=== PATIENT | female | born 1985 | race Caucasian/White ===

== ENCOUNTER 2019-02-21 09:20 | Emergency (ER) | payer SELFPAY ==
[~2019-02-21] VITALS: Ht 154.9 cm; Wt 87.5 kg
[2019-02-21 09:25] VITALS: BP 130/89; Ht 154.9 cm; Wt 87.5 kg
== END 2019-02-21 09:43 | disposition left against medical advice (07) ==
LOC: ED 09:20
DX: Z53.21 Procedure and treatment not carried out due to patient leaving prior to being seen by health care provider (principal)